=== PATIENT | male | born 1935 | race Asian ===

== ENCOUNTER → 2017-02-07 | Outpatient (CLI) | payer MEDICARE, MEDICAID | END | disposition home or self-care (01) | LOC: RADPV 12:10 | PROVIDERS: ATTEND Hospitalist | DX: E11.21 Type 2 diabetes mellitus with diabetic nephropathy (principal); N40.0 Benign prostatic hyperplasia without lower urinary tract symptoms; N28.1 Cyst of kidney, acquired | CPT/HCPCS: 76770 ==